=== PATIENT | male | born 1975 | race Caucasian/White ===

== ENCOUNTER 2020-12-16 02:00 | Emergency (ER) | payer MEDICAID ==
[~2020-12-16] VITALS: Ht 193 cm; Wt 127.3 kg
[2020-12-16] MEDS ORDERED: aspirin 81mg tab.chew PO ONE (02:55)
[2020-12-16] MEDS ORDERED: normal saline 1000ml 1,000 ML IV ONE (02:55)
[2020-12-16 03:38] LABS: CLARITY,URINE CLEAR (Clear); COLOR,URINE YELLOW (Yellow); GLUCOSE, URINE NEGATIVE (Neg); KETONES,URINE >=80 mg/dl (Neg); LEUKOCYTE ESTERASE ,URINE NEGATIVE (Neg); NITRITES, URINE NEGATIVE (Neg); OCCULT BLOOD,URINE NEGATIVE (Neg); PROTEIN,URINE NEGATIVE (Neg); UROBILINOGEN,URINE 0.2 E.U/dL (0.2-1.0)
[2020-12-16 03:43] LABS: UA COLLECTION TYPE CLN CATCH MIDSTREAM
[2020-12-16] MEDS ORDERED: iohexol 350MG/ML 100ml bottle IV ONE (03:45)
[2020-12-16 03:54] LABS: BASOPHILS # (AUTO) 0.1 X10'3 (0-0.2); BASOPHILS % (AUTO) 0.5 % (0-1); EOSINOPHILS # (AUTO) 0.2 X10'3 (0-0.9); EOSINOPHILS % (AUTO) 1.8 % (0-6); HEMOGLOBIN 13.7 g/dl (14.0-17.9); LYMPHOCYTES # (AUTO) 3.7 X10'3 (1.1-4.8); LYMPHOCYTES % (AUTO) 29.8 % (21-51); MEAN CORPUSCULAR HEMOGLOBIN 27.4 PG (27.0-31.0); MEAN CORPUSCULAR HGB CONC 33.4 g/dL (33.0-36.5); MEAN CORPUSCULAR VOLUME 82.1 FL (78-98); MEAN PLATELET VOLUME 8.8 FL (7.4-10.4); MONOCYTES # (AUTO) 0.9 X10'3 (0-0.9); MONOCYTES % (AUTO) 7.4 % (2-12); NEUTROPHILS # (AUTO) 7.5 X10'3 (1.8-7.7); NEUTROPHILS % (AUTO) 60.5 % (42-75); PLATELET COUNT 205 X10'3 (140-440); RED CELL DISTRIBUTION WIDTH 14.3 % (11.5-14.5); WHITE BLOOD COUNT 12.5 X10'3 (4.5-11.0)
[2020-12-16 03:56] LABS: PARTIAL THROMBOPLASTIN TIME 25 SECONDS (22-32)
[2020-12-16 04:01] LABS: ALANINE AMINOTRANSFERASE 49 U/L (12-78); ALBUMIN 4.1 G/DL (3.4-5.0); ALKALINE PHOSPHATASE 72 IU/L (46-116); ANION GAP 9 (8-16); ASPARTATE AMINO TRANSFERASE 19 U/L (10-37); BILIRUBIN,TOTAL 0.5 MG/DL (0.1-1.0); BLOOD UREA NITROGEN 16 MG/DL (7-18); BUN/CREATININE RATIO 16.7 (5.4-32.0); CALCIUM 8.8 MG/DL (8.5-10.1); CHLORIDE 105 MMOL/L (99-107); CREATININE 0.96 MG/DL (0.60-1.10); GLUCOSE 117 MG/DL (70-104); POTASSIUM 3.9 MMOL/L (3.5-5.1); SODIUM 141 MMOL/L (135-145); TOTAL CARBON DIOXIDE 26.6 MMOL/L (24-32); TOTAL PROTEIN 8.1 G/DL (6.4-8.2); eGFR 85 ML/MIN
[2020-12-16 04:07] LABS: MAGNESIUM 2.3 MG/DL (1.5-2.4)
[2020-12-16 05:39] VITALS: BP 116/81
== END 2020-12-16 05:25 | disposition home or self-care (01) ==
LOC: ER 02:01
DX: R07.89 Other chest pain (principal); R91.1 Solitary pulmonary nodule; Z98.890 Other specified postprocedural states; Z87.81 Personal history of (healed) traumatic fracture; Z88.0 Allergy status to penicillin; Z91.018 Allergy to other foods
CPT/HCPCS: 36415; 70498; 71045; 71275; 80053; 81003; 83735; 83880; 84484; 85025; 85610; 85730; 93005; 96360; 99285; J7030; Q9967

== ENCOUNTER → 2024-01-16 | Outpatient (CLI) | payer MEDICAID ==
[~2024-01-16] VITALS: Ht 193 cm; Wt 131.5 kg
[2024-01-16] MEDS: albuterol 2.5 MG/3 ML nebule NEB ONE (07:44)
[2024-01-16 07:45] VITALS: PULSE 63; RESP 14; O2SAT 98
== END | disposition home or self-care (01) ==
LOC: RT 07:12
PROVIDERS: ATTEND Physician Assistant
DX: R06.02 Shortness of breath (principal)
CPT/HCPCS: 94060; 94760

== ENCOUNTER 2025-09-08 08:49 | Day surgery (SDC) | payer MEDICAID ==
[~2025-09-08] VITALS: Ht 193 cm; Wt 134.7 kg
[2025-09-08] VITALS (8 sets, daily range): BP systolic 92–121; BP diastolic 45–78; PULSE 50–59; RESP 15–18; TEMP 98.3; O2SAT 95–98
[~2025-09-08 08:49] MED LIST: APIX5TAB3 PO; ringers solution, lacted 1,000 ML IV SCH; simethicone 40mg/0.6ml oral drops 15ml PO ONE
--- NOTE | 2025-09-08 10:28 | ELECTROCARDIOGRAPH REPORT ---
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 Kortney Fermin Measurements Intervals [place] Rate: 53 P: 35 W[place]: 195 QRS: 59 QRSD: 101 T: 47 QT: 449 QTc: 422 Interpretive Statements Sinus bradycardia Electronically Signed On 09-12-2025 7:07:[address] Kortney Fermin Please click the below link to view image of tracing.
[2025-09-08] MEDS ORDERED: MIDAZolam 1mg/ml 10ml vial ONE (10:40)
[2025-09-08] MEDS ORDERED: fentaNYL/PF 50MCG/1 ML 2ML syringe ONE (10:41)
[2025-09-08] MEDS ORDERED: propofol inj 40 ML IV ONE (10:43)
== END 2025-09-08 11:52 | disposition home or self-care (01) ==
LOC: GI LAB 08:49
PROVIDERS: ATTEND Internal Medicine Gastroenterology
DX: Z12.11 Encounter for screening for malignant neoplasm of colon (principal); E66.01 Morbid (severe) obesity due to excess calories; G47.33 Obstructive sleep apnea (adult) (pediatric); I25.2 Old myocardial infarction; Z79.01 Long term (current) use of anticoagulants; Z90.89 Acquired absence of other organs; Z98.890 Other specified postprocedural states; Z88.1 Allergy status to other antibiotic agents; Z91.018 Allergy to other foods; Z68.36 Body mass index [BMI] 36.0-36.9, adult; Z88.8 Allergy status to other drugs, medicaments and biological substances
CPT/HCPCS: 45378; 82948; 93005; J2250; J2704; J3010; J7120; Z7512; A4618; A4620; A6449; A7000